=== PATIENT | female | born 2000 | race Caucasian/White ===

== ENCOUNTER 2022-01-07 12:09 | Emergency (ER) | payer OTHER ==
[~2022-01-07] VITALS: Ht 167.6 cm; Wt 85.7 kg
[2022-01-07 12:18] VITALS: BP_SYST 129
[2022-01-07 13:12] LABS: BASOPHILS % (AUTO) 0.2 % (0.0-2.0); EOSINOPHILS % (AUTO) 0.2 % (0.0-4.0); HEMATOCRIT 42.4 % (36-48); LYMPHOCYTES # (AUTO) 1.4 K/uL (1.0-5.5); LYMPHOCYTES % (AUTO) 9.4 % (20.5-51.5); MEAN CORPUSCULAR VOLUME 91 fL (79.0-98.0); MONOCYTES # (AUTO) 0.9 K/uL (0.0-1.0); MONOCYTES % (AUTO) 5.9 % (1.7-9.3); NEUTROPHILS # (AUTO) 12.4 K/uL (1.8-7.7); NEUTROPHILS % (AUTO) 84.3 % (40.0-70.0); PLATELET COUNT (AUTO) 291 K/uL (130-430); RED BLOOD CELL COUNT(AUTO) 4.69 MIL/uL (4.2-6.2); RED CELL DISTRIBUTION WIDTH 12.4 % (9.0-15.0); WHITE BLOOD COUNT (AUTO) 14.7 K/uL (4.5-11.0)
[2022-01-07 13:30] LABS: CALCIUM 9.1 mg/dL (8.4-11.0); CREATININE 0.74 mg/dL (0.55-1.30); POTASSIUM 4.2 mmol/L (3.5-5.1)
[2022-01-07 13:36] LABS: ALBUMIN 3.6 g/dL (3.4-4.8); TOTAL BILIRUBIN 0.4 mg/dL (0.0-1.0)
--- NOTE | 2022-01-07 14:23 | NUR ---
DR NEWMAN OUT TO TRIAGE ROOM FOR EVALUATION
[2022-01-07] MEDS ORDERED: MAG HYDROX/AL HYDROX/SIMETH 30 ML, DICYCLOMINE HCL 20 MG, LIDOCAINE VISCOUS 2% 15ML (PO... PO ONE ×3 (14:30)
[2022-01-07] MEDS ORDERED: KETOROLAC TROMETHAMINE 60 MG/2 ML VIAL IM ONE (14:30)
[2022-01-07] MEDS ORDERED: MAG-AL HYDROX/SIMETH 30 ML UDC ONE (14:34)
[2022-01-07] MEDS ORDERED: LIDOCAINE VISCOUS 2%, 15 ML UDC ONE (14:34)
--- NOTE | 2022-01-07 14:45 | NUR ---
ER at bedside examining patient.
--- NOTE | 2022-01-07 15:00 | NUR ---
pt with radiology dept.
[2022-01-07 15:08] LABS: BILIRUBIN,URINE NEGATIVE (NEGATIVE); BLOOD, URINE NEGATIVE (NEGATIVE); CLARITY/URINE CLEAR (CLEAR); COLOR,URINE YELLOW (YELLOW); GLUCOSE,URINE NEGATIVE (NEGATIVE); KETONES,URINE NEGATIVE (NEGATIVE); LEUKOCYTE ESTERASE ,URINE NEGATIVE (NEGATIVE); NITRITE, URINE NEGATIVE (NEGATIVE); PH,URINE 5.5 (5.0-8.0); PROTEIN URINE NEGATIVE (NEGATIVE); UROBILINOGEN,URINE 0.2 (0.2-1.0)
--- NOTE | 2022-01-07 15:54 | NUR ---
pt resting in bed without complaint. bed down rail up, family member bedside.
[2022-01-07] MEDS ORDERED: ONDA-8 TL (16:01)
[2022-01-07] MEDS ORDERED: FAMO20TA8 PO (16:01)
[2022-01-07] MEDS ORDERED: TRAM50TA PO (16:01)
--- NOTE | 2022-01-07 16:18 | NUR ---
Patient given written and verbal discharge instructions and verbalizes understanding. ER MD discussed with patient the results and treatment provided. Patient in stable condition. ID arm band removed. Rx of Pepci, Zofran, and tramadol given. Patient educated on pain management and to follow up with PMD. Opportunity for questions provided and answered. Medication side effect fact sheet provided.
[2022-01-07 16:19] VITALS: BP_SYST 119
== END 2022-01-07 16:18 | disposition home or self-care (01) ==
LOC: SED 12:09
DX: R10.13 Epigastric pain (principal); R11.2 Nausea with vomiting, unspecified; Z79.899 Other long term (current) drug therapy
CPT/HCPCS: 99284; 76700; 80053; 82150; 83690; 85025; 36415; 96372; 81003; J1885; J2001

== ENCOUNTER 2022-01-08 21:07 | Emergency (ER) | payer OTHER ==
[~2022-01-08 21:07] MED LIST: FAMO20TA8 PO; ONDA-8 TL; TRAM50TA PO
--- NOTE | 2022-01-08 21:30 | NUR ---
PT CALLED FOR TRIAGE AND NO ANSWER
--- NOTE | 2022-01-08 21:57 | NUR ---
PT CALLED MULTIPLE FOR TRIAGE AND NO ANSWER
== END 2022-01-08 21:57 | disposition left against medical advice (07) ==
LOC: SED 21:07
DX: R11.10 Vomiting, unspecified (principal); Z53.21 Procedure and treatment not carried out due to patient leaving prior to being seen by health care provider